=== PATIENT | female | born 1970 | race Caucasian/White ===

== ENCOUNTER 2022-08-26 06:54 | Day surgery (SDC) | payer MEDICAID ==
[~2022-08-26 06:54] MED LIST: Lactated Ringers 1,000 ML IV SCH; Sodium Chloride 0.9% 10 ML Syringe FLUSH PRN
[2022-08-26] MEDS ORDERED: Lidocaine 2% 5 ML SDV IV ONE (06:55)
[2022-08-26] MEDS ORDERED: Propofol 200 MG/20 ML SDV IV ONE (06:55)
[2022-08-26] MEDS ORDERED: Glycopyrrolate 0.2 MG/ML 5 ML MDV IV ONE (06:55)
[2022-08-26] MEDS ORDERED: Simethicone Drops 40 MG/0.6 ML 30 ML Bottle ONE (08:09)
[2022-08-26 10:10] VITALS: BP 122/82; PULSE 76
== END 2022-08-26 09:40 | disposition home or self-care (01) ==
LOC: FB.SDS 06:54
PROVIDERS: ATTEND Surgery
DX: D12.6 Benign neoplasm of colon, unspecified (principal); K63.5 Polyp of colon; K58.9 Irritable bowel syndrome, unspecified; K21.9 Gastro-esophageal reflux disease without esophagitis; Z80.0 Family history of malignant neoplasm of digestive organs; Z79.82 Long term (current) use of aspirin; Z79.899 Other long term (current) drug therapy; Z88.1 Allergy status to other antibiotic agents; Z88.5 Allergy status to narcotic agent; Z87.891 Personal history of nicotine dependence
CPT/HCPCS: 00811; 45385; 88305; A9270; J2704; J3490; J7120